=== PATIENT | female | born 1965 ===

== ENCOUNTER 2022-07-08 11:17 | Outpatient (CLI) | payer OTHER | END 2022-07-08 11:42 | disposition home or self-care (01) | LOC: MRI 11:17 | PROVIDERS: ATTEND Neurological Surgery | DX: M54.59 Other low back pain (principal); M48.02 Spinal stenosis, cervical region; M54.2 Cervicalgia; M45.4 Ankylosing spondylitis of thoracic region | CPT/HCPCS: 72141 ==